=== PATIENT | female | born 1975 | race African-American/Black ===

== ENCOUNTER 2016-09-28 08:22 | Outpatient (CLI) | payer OTHER ==
[2016-09-29 22:35] LABS: Chlamydia by PCR Not Detected (NotDetected); GC by PCR Not Detected (NotDetected)
== END 2016-09-28 08:23 | disposition home or self-care (01) ==
LOC: LABLEX 08:22
PROVIDERS: ATTEND Family Medicine
DX: N89.8 Other specified noninflammatory disorders of vagina (principal); Z20.2 Contact with and (suspected) exposure to infections with a predominantly sexual mode of transmission
CPT/HCPCS: 87480; 87491; 87510; 87591; 87660